=== PATIENT | male | born 1980 | race Caucasian/White ===

== ENCOUNTER 2016-06-09 18:51 | Emergency (ER) | payer OTHER ==
[~2016-06-09] VITALS: Ht 177.8 cm; Wt 74.8 kg
[2016-06-09 18:52] VITALS: BP 149/75
[2016-06-09 19:32] LABS: BASOPHIL % 0.6 % (0-2); PLATELET COUNT 178 x10^3mcL (130-400)
[2016-06-09 19:33] LABS: RED CELL DISTRIBUTION WIDTH 14.6 % (11.5-14.5)
[2016-06-09 19:44] LABS: ALBUMIN 4.5 g/dL (3.4-5.0); ALKALINE PHOSPHATASE 57 U/L (46-116); ALT/SGPT 21 U/L (16-63); AMYLASE 48 U/L (25-115); AST/SGOT 11 U/L (15-37); BILIRUBIN TOTAL 1.3 mg/dL (0.20-1.00); CALCIUM 9.4 mg/dL (8.5-10.1); CARBON DIOXIDE 25.5 mmol/L (21-32); CHLORIDE SERUM 102 mmol/L (98-107); CREATININE SERUM 1.3 mg/dL (0.7-1.3); GFR1 > 60 mL/min; GLUCOSE SERUM 90 mg/dL (74-106); LIPASE 182 IU/L (73-393); SODIUM SERUM 141 mmol/L (136-145)
[2016-06-09 19:47] LABS: POTASSIUM SERUM 2.8 mmol/L (3.5-5.1)
== END 2016-06-09 20:31 | disposition home or self-care (01) ==
LOC: ED 18:51
PROVIDERS: Emergency Medicine
DX: G89.29 Other chronic pain (principal); R10.9 Unspecified abdominal pain; R11.10 Vomiting, unspecified; E87.6 Hypokalemia
CPT/HCPCS: 80307; J1630; J2060; J7030

== ENCOUNTER 2018-09-04 10:59 | Emergency (ER) | payer OTHER ==
[~2018-09-04] VITALS: Ht 177.8 cm; Wt 95.3 kg
[2018-09-04 11:02] VITALS: Ht 177.8 cm; Wt 95.3 kg
[2018-09-04 11:40] LABS: BASOPHIL % 0.1 % (0-2); PLATELET COUNT 161 x10^3mcL (130-400); RED CELL DISTRIBUTION WIDTH 13.6 % (11.5-14.5)
[2018-09-04 11:53] LABS: ALKALINE PHOSPHATASE 30 U/L (46-116); ALT/SGPT 12 U/L (16-63); AST/SGOT 8 U/L (15-37); BILIRUBIN TOTAL 0.3 mg/dL (0.20-1.00); CARBON DIOXIDE 16.7 mmol/L (21-32); CHLORIDE SERUM 119 mmol/L (98-107); CREATININE SERUM 0.5 mg/dL (0.7-1.3); GFR1 > 60 mL/min; GLUCOSE SERUM 67 mg/dL (74-106); LIPASE 407 IU/L (73-393); SODIUM SERUM 150 mmol/L (136-145)
[2018-09-04 12:00] VITALS: BP 145/50
[2018-09-04 12:46] LABS: ALBUMIN 2.3 g/dL (3.4-5.0); POTASSIUM SERUM 1.6 mmol/L (3.5-5.1); TOTAL PROTEIN, SERUM 4.1 g/dL (6.4-8.2)
[2018-09-04 12:47] LABS: CALCIUM 5.3 mg/dL (8.5-10.1)
== END 2018-09-04 12:08 | disposition left against medical advice (07) ==
LOC: ED 10:59
PROVIDERS: Emergency Medicine
DX: R10.84 Generalized abdominal pain (principal); R10.13 Epigastric pain; R10.33 Periumbilical pain; R11.2 Nausea with vomiting, unspecified; Z98.890 Other specified postprocedural states; Z88.6 Allergy status to analgesic agent; Z88.8 Allergy status to other drugs, medicaments and biological substances
CPT/HCPCS: J2405; J2765; J3010; J7030